=== PATIENT | female | born 1970 | race Caucasian/White ===

== ENCOUNTER 2025-02-19 14:03 | Inpatient (IN) | payer BC ==
[~2025-02-19] VITALS: Ht 167.6 cm; Wt 72.6 kg
[2025-02-19 15:08] LABS: BASOPHILS % 0.3 % (0.0-2.0); EOSINOPHILS % 0.1 % (0.0-5.0); HEMATOCRIT. 37.4 % (36.0-48.0); HEMOGLOBIN. 12.9 g/dL (12.0-16.0); LYMPHOCYTES % 10.4 % (20.0-50.0); MEAN PLATELET VOLUME 9.2 fl (7.4-10.4); MONOCYTES % 6.6 % (2.0-8.0); NEUTROPHILS % 82.6 % (40.0-76.0); PLATELET 249 x1000/uL (130-400); RED BLOOD CELL COUNT 4.07 mill/uL (4.2-5.4); RED CELL DISTRIBUTION WIDTH 14.1 % (11.6-14.6)
[2025-02-19 15:25] LABS: CREATININE 0.7 mg/dL (0.6-1.0)
[2025-02-19 15:26] LABS: UREA NITROGEN BLOOD 17 mg/dL (9-23)
[2025-02-19 17:20] LABS: GLUCOSE URINE NEGATIVE (NEGATIVE); KETONES URINE 3+ (NEGATIVE); LEUKOCYTE ESTERASE URINE TRACE (NEGATIVE); NITRITE URINE NEGATIVE (NEGATIVE); OCCULT BLOOD URINE 2+ (NEGATIVE); PH URINE 6.0 (4.5-8.0); PROTEIN URINE 2+ (NEGATIVE); SPECIFIC GRAVITY URINE 1.031 (1.005-1.030); UROBILINOGEN URINE 1.0 E.U./dL (0.2-1.0)
[2025-02-19 17:34] LABS: CLARITY URINE SL HAZY (CLEAR); COLOR URINE YELLOW (YELLOW)
[2025-02-19 17:38] LABS: RBC URINE 0-2 /hpf (0-2); SQUAMOUS EPITHELIAL CELL URINE 2+ /lpf (RARE/1+)
[2025-02-19 17:39] LABS: BACTERIA URINE 1+; YEAST URINE 1+
[2025-02-19 17:41] LABS: TROPONIN I HIGH SENSITIVITY < 4 ng/L (3.0-34)
[2025-02-19 17:42] LABS: ASPARTATE AMINOTRANSFERASE 74 IU/L (<34); BILIRUBIN DIRECT 0.2 mg/dL (<=3.0); BILIRUBIN TOTAL 0.6 mg/dL (0.1-1.0); PROTEIN TOTAL 7.3 g/dL (6.0-8.3)
[2025-02-19 17:42] LABS: MUCUS URINE 1+ /lpf (< = 2+)
[2025-02-19 20:00] VITALS: BP 122/59; PULSE 73; RESP 18; TEMP 37.1; O2SAT 98
[2025-02-19] MEDS ORDERED: LEVO100T9 PO (21:30)
[2025-02-19] MEDS ORDERED: HYDROCODONE/ACETAMINOPHEN 5/325MG TABLET PO PRN (22:00)
[2025-02-19] MEDS ORDERED: CLONIDINE 0.1MG TABLET PO PRN (22:00)
[2025-02-19] MEDS ORDERED: NALOXONE HCL 0.4MG/ML VIAL IV PRN (22:15)
[2025-02-19] MEDS: SODIUM CHLORIDE 0.9% 1,000 ML IV SCH (22:46)
[2025-02-19] MEDS: ONDANSETRON HCL 4MG/2ML INJ IV PRN (22:46)
[2025-02-19] MEDS: MORPHINE SULFATE 2 MG/ML INJ (NOT FOR IM USE) IV PRN (22:47)
[2025-02-20] VITALS (7 sets, daily range): BP systolic 116–132; BP diastolic 57–70; PULSE 72–90; RESP 17–18; TEMP 36.2–37.3; O2SAT 95–97
[2025-02-20 00:03] LABS: PLATELET 253 x1000/uL (130-400); RED BLOOD CELL COUNT 4.04 mill/uL (4.2-5.4); RED CELL DISTRIBUTION WIDTH 13.7 % (11.6-14.6)
[2025-02-20 00:15] LABS: CREATININE 0.5 mg/dL (0.6-1.0); UREA NITROGEN BLOOD 11 mg/dL (9-23)
[2025-02-20] MEDS: PANTOPRAZOLE SODIUM 40 MG/VIAL IV SCH (08:38)
[2025-02-20 11:38] LABS: BASOPHILS % 0.2 % (0.0-2.0); EOSINOPHILS % 0.1 % (0.0-5.0); HEMATOCRIT. 35.4 % (36.0-48.0); HEMOGLOBIN. 12.1 g/dL (12.0-16.0); LYMPHOCYTES % 10.6 % (20.0-50.0); MEAN PLATELET VOLUME 9.8 fl (7.4-10.4); MONOCYTES % 7.0 % (2.0-8.0); NEUTROPHILS % 82.1 % (40.0-76.0); PLATELET 237 x1000/uL (130-400); RED BLOOD CELL COUNT 3.78 mill/uL (4.2-5.4); RED CELL DISTRIBUTION WIDTH 14.0 % (11.6-14.6)
[2025-02-20 12:02] LABS: CREATININE 0.6 mg/dL (0.6-1.0); UREA NITROGEN BLOOD 14 mg/dL (9-23)
[2025-02-20 12:04] LABS: ASPARTATE AMINOTRANSFERASE 44 IU/L (<34); BILIRUBIN TOTAL 0.6 mg/dL (0.1-1.0)
[2025-02-20 12:05] LABS: PROTEIN TOTAL 6.6 g/dL (6.0-8.3)
[2025-02-21] VITALS: BP 128/66; PULSE 74; RESP 18; TEMP 36.2; O2SAT 98
[2025-02-21 04:00] VITALS: BP 125/60; PULSE 73; RESP 17; TEMP 36.4; O2SAT 98
[2025-02-21 08:00] VITALS: BP 132/65; PULSE 80; RESP 18; TEMP 36.3; O2SAT 96
[2025-02-21 12:00] VITALS: BP 127/65; PULSE 70; RESP 18; TEMP 36.5; O2SAT 97
[2025-02-21] MEDS: POTASSIUM CHLORIDE 20MEQ TABLET SR PO SCH (15:21)
[2025-02-21 16:00] VITALS: BP 118/67; PULSE 70; RESP 18; TEMP 36.4; O2SAT 98
[2025-02-21] MEDS ORDERED: LEVO750T68 MT (17:30)
[2025-02-21 18:19] VITALS: BP 118/67; PULSE 70; TEMP 97.6; O2SAT 98
== END 2025-02-21 18:40 | disposition home or self-care (01) | DRG 446 ==
LOC: ER 14:03 → ENRESERV 18:35 → 5WST 20:56
PROVIDERS: ADMIT Internal Medicine; ATTEND Internal Medicine
DX: K80.00 Calculus of gallbladder with acute cholecystitis without obstruction (principal); E03.9 Hypothyroidism, unspecified; Z79.899 Other long term (current) drug therapy
CPT/HCPCS: 36415; 71045; 74176; 76705; 80048; 80053; 80076; 81003; 84145; 84484; 85025; 85027; 93005; 99285; J2270; J2405; J2470; J7030